=== PATIENT | female | born 1950 | race Hispanic/Latino ===

== ENCOUNTER → 2019-01-25 | Day surgery (SDC) | payer MEDICARE ==
[2019-01-19 10:10] LABS: BASOPHILS % 0.5 % (0.0-1.0); EOSINOPHILS # (AUTO) 0.3 (0.0-0.4); EOSINOPHILS % 2.9 % (0.0-6.0); LYMPHOCYTES # (AUTO) 2.3 (1.0-3.2); LYMPHOCYTES % 26.7 % (18.0-39.1); MEAN CORPUSCULAR HEMOGLOBIN 27.9 pg (28-32); MEAN CORPUSCULAR HGB CONC 34.3 g/dL (31-35); MEAN CORPUSCULAR VOLUME 81.4 fL (81-99); MONOCYTES # (AUTO) 0.7 (0.2-0.8); MONOCYTES % 8.4 % (4.4-11.3); NEUTROPHILS # (AUTO) 5.3 (2.1-6.9); PLATELET COUNT 286 x10e3/uL (140-360); RED CELL DISTRIBUTION WIDTH 13.4 % (11.7-14.4)
[2019-01-19 10:12] LABS: INR 0.88; PROTHROMBIN TIME 12.4 seconds (11.9-14.5)
[2019-01-19 10:13] LABS: PARTIAL THROMBOPLASTIN TIME 28.1 seconds (23.8-35.5)
[2019-01-19 10:21] LABS: ALANINE AMINOTRANSFERASE 18 IU/L (0-55); ALBUMIN 3.9 g/dL (3.5-5.0); ALBUMIN/GLOBULIN RATIO 1.1 (0.8-2.0); ALKALINE PHOSPHATASE 74 IU/L (40-150); ANION GAP 12.7 mmol/L (8-16); BLOOD UREA NITROGEN 11 mg/dL (7-26); BUN/CREATININE RATIO 14 (6-25); CALCIUM 9.6 mg/dL (8.4-10.2); CARBON DIOXIDE 26 mmol/L (22-29); CHLORIDE 101 mmol/L (98-107); CREATININE, SERUM 0.81 mg/dL (0.57-1.11); EST GLOMERULAR FILTRATION RATE > 60 ML/MIN (60-); GLUCOSE 116 mg/dL (74-118); POTASSIUM 3.7 mmol/L (3.5-5.1); SODIUM 136 mmol/L (136-145)
--- NOTE | 2019-01-19 10:23 | Diagnostic Imaging Report ---
EXAMINATION: PA and lateral views of the chest. COMPARISON: None CLINICAL HISTORY: Preoperative study for urological procedure DISCUSSION: The lungs are well-inflated and without focal airspace consolidation, pleural effusion, or pneumothorax. Postsurgical changes of the mediastinum with multiple intact sternotomy wires and mediastinal surgical clips. Normal heart size without overt pulmonary edema. No acute osseous abnormality. IMPRESSION: No acute cardiopulmonary abnormalities. Signed by: Dr. Chris Hooper M.D. on 01/19/2019 10:20 AM
[~2019-01-25] MED LIST: ASPIR 8181 MG PO; DEXAMETHASONE SOD PHOS INJ 4 MG/ML VIAL ONE; FENTANYL CITRATE/PF 100MCG/2 ML INJ ONE; IOPAMIDOL 610MG/1ML 300 MG/ML VIAL IV ONE; LEVOFLOXACIN 500MG/D5W 100ML 100 ML IV ONE; LIDOCAINE HCL 2% LOCAL INJ 5 ML SDV VIAL INJ ONE; METOPROLOL SUCC50 MG PO; MIDAZOLAM HCL 2 MG/2 ML VIAL ONE; ONDANSETRON HCL INJ 2MG/ML 2ML 2 MG/ML VIAL ONE; PROPOFOL IV EMULSION 10 MG/ML 20 ML VIAL ONE; SEVOFLURANE INHAL SOLN 250 ML PEN BTL ONE
--- OUTSIDE RECORDS SUMMARY | 2019-01-25 07:59 | XMS REPORT | Clinical Summary ---
Author Author [employer] Organization [facility] Address Unknown Phone Unavailable Care Team Providers Care Personal Service Representative Name Role Phone Harmeet Jarrell MD PCP Allergies No Known Allergies Medications End Date Status Medication Sig Dispensed Refills Start Date Active metoprolol tartrate ALEJANDRO BRIANNA 1 (LOPRESSOR) 50 mg tablet TABLETA 7 ORALMENTE CADA AIDA PARA RASHID PRESION Active aspirin (ECOTRIN) 81 MG Take 81 mg by 0 enteric coated tablet mouth daily. 11/03/2018 Discontinued sodium,potassium,mag Used As 2 Bottle 0 sulfates (SUPREP BOWEL directed 9 PREP KIT) 17.5-3.13-1.6 gram recon soln Active Problems Problem Noted Date Colon polyps 12/01/2018 Hx of hepatitis C 12/01/2018 Diverticulosis of large intestine without hemorrhage 12/01/2018 Hx of colonic polyps 10/26/2018 Overview: Added automatically from request for surgery Nuclear sclerotic cataract of left eye 05/23/2017 Encounters Care Team Description Date Type Specialty Mateo Angel MD Hx of colonic polyps (Primary Dx); Hx of hepatitis C 12/01/2018 Office Visit Gastroenterology Mateo Angel MD 12/01/2018 Orders Only Gastroenterology Herve Brooks MD Hematuria syndrome (Primary Dx); Adnexal tenderness, right 11/14/2018 Transcribe Access Orders Negro Orozco MD 11/04/2018 Anesthesia Gastroenterology Event Getachew Browne MD COLONOSCOPY 11/04/2018 Surgery Gastroenterology Getachew Browne MD 11/04/2018 Hospital Gastroenterology Encounter Harmeet Jarrell MD Screening for colon cancer (Primary Dx) 10/27/2018 Transcribe Orders Harmeet Jarrell MD 10/27/2018 Transcribe Orders Mateo Angel MD Hx of colonic polyps (Primary Dx); Chronic hepatitis C without hepatic coma (HCC); Left lower quadrant pain; Diverticulosis of large intestine without hemorrhage 10/26/2018 Office Visit Gastroenterology Iris Martinez MA PROCEDURE PREP INSTRUCTIONS 10/26/2018 Documentation Gastroenterology MartinezIris vasquez MA Hx of colonic polyps (Primary Dx) 10/26/2018 Prep for Gastroenterology Surgery Harmeet Jarrell MD Screening breast examination (Primary Dx) 05/24/2018 Transcribe Access Orders after 01/24/2018 Immunizations Name Dates Previously Given Next Due Tdap 05/01/2017 Family History Medical History Relation Name Comments No Known Problems Father No Known Problems Mother Relation Name Status Comments Father Mother Social History Date Tobacco Use Types Packs/Day Years Used Never Smoker Smokeless Tobacco: Never Used Alcohol Use Drinks/Week oz/Week Comments No Sex Assigned at Date Recorded Not on file Industry Job Start Date Occupation Not on file Not on file Not on file Travel End Travel History Travel Start No recent travel history available. Last Filed Vital Signs Time Taken Vital Sign Reading 12/01/2018 10:12 AM CDT Blood Pressure 151/78 12/01/2018 10:12 AM CDT Pulse 78 12/01/2018 10:12 AM CDT Temperature 36.8 C (98.2 F) 11/04/2018 11:13 AM CDT Respiratory Rate 10 11/04/2018 11:13 AM CDT Oxygen Saturation 100% - Inhaled Oxygen - Concentration 12/01/2018 10:12 AM CDT Weight 64.9 kg (143 lb) 12/01/2018 10:12 AM CDT Height 154.9 cm (5' 1") 12/01/2018 10:12 AM CDT Body Mass Index 27.02 Plan of Treatment Health Maintenance Due Date Last Done Comments COLONOSCOPY SCREENING 2001 SHINGLES VACCINES (#1) 2001 65+ PNEUMOCOCCAL VACCINE 2016 (1 of 2 - PCV13) INFLUENZA VACCINE 03/02/2019 BREAST CANCER SCREENING 07/12/2019 07/12/2017, 06/11/2016, 03/06/2011 Implants Device Identifier Shelf Expiration Date Model / Serial / Lot Implanted Type Area Manufactur er 08/14/2020 [id number] 25 5 / [id number] / [id number] Lens Iol Bicnvx 1pc Acryl +25.5d Intraocula Left: Eye ADVANCED 6x13mm Tecnis - [id number] - r Lens MEDICAL [id number] Implant [employer] Implanted: Qty: 1 on 05/27/2017 by dA Dejesus MD Procedures Comments Procedure Name Priority Date/Time Associated Diagnosis CBC WITH PLATELET AND Routine 12/01/[address] ABDOMEN PELVIS W Routine 11/25/2018 Hematuria syndrome CONTRAST 11:47 AM CDT Adnexal tenderness, right ESTIMATED GFR Routine 11/25/2018 11:13 AM CDT POC CREATININE Routine 11/25/2018 11:13 AM CDT COLONOSCOPY 11/04/2018 Hx of colonic polyps 10:15 AM CDT after 01/24/2018 Results * CBC with platelet and differential (12/01/2018) Specimen Blood Narrative Performed At * CT Abdomen Pelvis W Contrast (11/25/2018 11:47 AM CDT) Specimen Narrative Performed At EXAMINATION:CT ABDOMEN PELVIS W CONTRAST HM RADIANT CLINICAL HISTORY:R31.9 Hematuriaunspecified, R10.2 Pelvic and perineal pain, PELVIC PAIN HEMATURIA COMPARISON:11/26/2015. TECHNIQUE:CT of the abdomen and pelvis with intravenous contrast. CT imaging was performed with iterative reconstruction techniques and/or automated exposure control to reduce radiation dose. FINDINGS: LOWER THORAX:Unremarkable. HEPATOBILIARY:No focal hepatic lesions. No biliary ductal dilation. SPLEEN:No splenomegaly. PANCREAS:No focal masses or ductal dilation. ADRENALS:No adrenal nodules. KIDNEYS:No hydronephrosis, stones or solid masses. Ureters are unremarkable. GI TRACT:Moderate diverticulosis without diverticulitis. No bowel distention or wall thickening. Appendix is normal. PERITONEUM/RETROPERITONEUM:No free air or fluid. No lymphadenopathy. Aorta with moderate calcifications is nonaneurysmal. PELVIC ORGANS/BLADDER:Uterus is identified. Evidence of bilateral tubal ligation noted again. Stable 1.8 cm right ovarian cyst since 2016 CT exam, which was also identified on 10/07/2016 ultrasound exam. No left ovary is definitely identified. No adnexal mass. Urinary bladder is unremarkable. BONES AND SOFT TISSUES:Age-related changes are seen in the spine without focal abnormal osseous lesion. Partly seen median sternotomy. Small hyperdensities in the left inguinal region again noted. IMPRESSION: No acute abdominopelvic process is identified. I personally reviewed the images and the resident's findings and agree with the final report. [facility]-[id number] Procedure Note Interface, Radiology Results Incoming - 11/25/2018 12:51 PM CDT EXAMINATION: CT ABDOMEN PELVIS W CONTRAST CLINICAL HISTORY: R31.9 Hematuria unspecified, R10.2 Pelvic and perineal pain, PELVIC PAIN HEMATURIA COMPARISON: 11/26/2015. TECHNIQUE: CT of the abdomen and pelvis with intravenous contrast. CT imaging was performed with iterative reconstruction techniques and/or automated exposure control to reduce radiation dose. FINDINGS: LOWER THORAX: Unremarkable. HEPATOBILIARY: No focal hepatic lesions. No biliary ductal dilation. SPLEEN: No splenomegaly. PANCREAS: No focal masses or ductal dilation. ADRENALS: No adrenal nodules. KIDNEYS: No hydronephrosis, stones or solid masses. Ureters are unremarkable. GI TRACT: Moderate diverticulosis without diverticulitis. No bowel distention or wall thickening. Appendix is normal. PERITONEUM/RETROPERITONEUM: No free air or fluid. No lymphadenopathy. Aorta with moderate calcifications is nonaneurysmal. PELVIC ORGANS/BLADDER: Uterus is identified. Evidence of bilateral tubal ligation noted again. Stable 1.8 cm right ovarian cyst since 2016 CT exam, which was also identified on 10/07/2016 ultrasound exam. No left ovary is definitely identified. No adnexal mass. Urinary bladder is unremarkable. BONES AND SOFT TISSUES: Age-related changes are seen in the spine without focal abnormal osseous lesion. Partly seen median sternotomy. Small hyperdensities in the left inguinal region again noted. IMPRESSION: No acute abdominopelvic process is identified. I personally reviewed the images and the resident's findings and agree with the final report. [facility]-[id number] Performing Organization Address City/State/Zipcode Phone Number [facility] [address] [place] [address] * Estimated GFR (11/25/2018 11:13 AM CDT) Estimated GFR >=90 mL/min/1.73 m2 [place] Comment: BAPTISM GAVIRIA [facility] G1 >=90 Normal or high G2 60-89Mildly decreased T9d82-48 Mildly to moderately decreased P3o10-29 Moderately to severely decreased G4 15-29Severely decreased G5 <15Kidney failure The eGFR was calculated using the Chronic Kidney Disease Epidemiology Collaboration (CKD-EPI) equation. Interpretation is based on recommendations of the National Kidney Foundation-Kidney Disease Outcomes Quality Initiative (NKF-KDOQI) published in 2014. Specimen Blood Performing Organization Address City/State/Zipcode Phone Number [facility] DEPARTMENT OF [address] [phone] PATHOLOGY AND GENOMIC MEDICINE [facility] [address] * POC creatinine (11/25/2018 11:13 AM CDT) POC creatinine 0.6 0.5 - 0.9 mg/dl [place] Comment: LOTUS GAVIRIA Meter ID: [id number] [facility] Abstract Searcher: [facility] Specimen Blood Performing Organization Address City/[facility] Phone Number [facility] [address] [place] [address] PATHOLOGY AND GENOMIC MEDICINE [address] after 01/24/2018 Insurance Type Payer Benefit Subscriber ID Effective Phone Address Plan / Dates Group O [facility] MEDICARE AARP xxxxxxxxx [id number] MEDICARE resent COMPLETE [facility] Advance Directives Patient has advance care planning documents on file. For more information, ritu e contact: Chu Poe [address] [place] [address]
--- OUTSIDE RECORDS SUMMARY | 2019-01-25 07:59 | XMS REPORT ---
[facility] Address Unknown Phone Unavailable Care Team Providers Care Global Supply Chain Vice President Name Role Phone SAMCHAPISVeronica ZAPATA Unavailable Unavailable Problems This patient has no known problems. Allergies, Adverse Reactions, Alerts This patient has no known allergies or adverse reactions. Medications This patient has no known medications. Results Test Description Test Time Test Comments Text Results Atomic Results Result Comments CHEST 2 VIEWS 2019-01-19 10:18:00 [place] [address] Patient Name: LUCINA WILSON MR #: [id number] : 1950 Age/Sex: 68/F Req #: [id number] [facility] Physician: Ordered by: DENIS MCDANIELS MD Report #: [id number] Location: OR Room/Bed: Procedure: [id number] DX/CHEST 2 VIEWS Exam Date: 01/19/19 Exam Time: 1000 REPORT STATUS: Signed EXAMINATION: PA and lateral views of the chest. CO MPARISON: None CLINICAL HISTORY: Preoperative study for urological procedure DISCUSSION: The lungs are well-inflated and without focal airspace consolidation, pleural effusion, or pneumothorax. Postsurgical changes of the mediastinum with multiple intact sternotomy wires and mediastinal surgical clips. Normal heart size without overt pulmonary edema. No acute osseous abnormality. IMPRESSION: No acute cardiopulmonary abnormalities. Signed by: Dr. Emily Guthrie M.D. on 01/19/2019 10:20 AM Dictated By: EMILY GUTHRIE MD 1020 Transcribed By: NICCI on 01/19/19 1020 COPY TO: DENIS MCDANIELS MD
[2019-01-25 13:00] VITALS: BP 135/72
--- NOTE | 2019-01-26 11:28 | Operative Report ---
DATE OF PROCEDURE: 01/25/2019 SURGEON: Herve Brooks MD PREOPERATIVE DIAGNOSIS: Total gross painless hematuria. POSTOPERATIVE DIAGNOSES: 1. Total gross painless hematuria. 2. Severe chronic cystitis with chronic trigonitis. 3. 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 OPERATION: Cystourethroscopy and bilateral retrograde pyelogram. PRIMARY CARE PEDIATRICIAN: ASHLEY Cruz ANESTHETIC: General. DESCRIPTION OF PROCEDURE: Ms. Schaeffer is a 68-year-old female, who presented with a chief complaint of total gross painless hematuria. CT scan abdomen and pelvis was unremarkable. This patient was placed on the table in the lithotomy position and was prepped and draped in a sterile manner after satisfactory anesthesia. A #23-Wallisian cystoscope was used and cystourethroscopy was performed and it was noted that the urethra was normal. Cystoscopy was then performed using both right angle and Foroblique lens and the bladder mucosa showed chronic trigonitis with chronic cystitis. There was no evidence of gross tumor or any papillary lesions or stones. Both ureteral orifices were seen and were within normal position, configuration efflux. Right retrograde pyelogram was then performed using #8 bulb tip. Ureteral catheter inserted at the right ureteral orifice and 5 mL of contrast material was injected. The retrograde performed was normal. Left retrograde pyelogram was performed similarly and was normal. The bladder was drained. Cystoscope removed and patient taken to the recovery room in satisfactory condition. Plans for this lady is to be placed on Cipro 250 mg one twice a day for two weeks, then one every night for four weeks. She is to return to the office in one month. Also, Ultracet tablet one every 6 to 8 hours p.r.n. and was given 20. Herve Brooks MD MA/YANICK /[id number]
== END | disposition home or self-care (01) ==
LOC: OR 07:36
PROVIDERS: ATTEND Specialist
DX: N30.30 Trigonitis without hematuria (principal); Q64.8 Other specified congenital malformations of urinary system; R31.0 Gross hematuria; I25.810 Atherosclerosis of coronary artery bypass graft(s) without angina pectoris; I25.2 Old myocardial infarction; I10 Essential (primary) hypertension; K21.9 Gastro-esophageal reflux disease without esophagitis; K44.9 Diaphragmatic hernia without obstruction or gangrene; B19.20 Unspecified viral hepatitis C without hepatic coma; Z01.812 Encounter for preprocedural laboratory examination; Z01.818 Encounter for other preprocedural examination; Z79.82 Long term (current) use of aspirin; Z95.1 Presence of aortocoronary bypass graft
CPT/HCPCS: 36415; 52005; 71046; 74420; 80053; 85025; 85610; 85730; C1758; J1100; J1956; J2001; J2250; J2405; J2704; Q9967; J3010

== ENCOUNTER 2020-01-23 13:16 | Emergency (ER) | payer OTHER ==
[~2020-01-23] VITALS: Ht 154.9 cm; Wt 62.6 kg
[~2020-01-23 13:16] MED LIST changes: -DEXAMETHASONE SOD PHOS INJ 4 MG/ML VIAL ONE; -FENTANYL CITRATE/PF 100MCG/2 ML INJ ONE; -IOPAMIDOL 610MG/1ML 300 MG/ML VIAL IV ONE; -LEVOFLOXACIN 500MG/D5W 100ML 100 ML IV ONE; -LIDOCAINE HCL 2% LOCAL INJ 5 ML SDV VIAL INJ ONE; -MIDAZOLAM HCL 2 MG/2 ML VIAL ONE; -ONDANSETRON HCL INJ 2MG/ML 2ML 2 MG/ML VIAL ONE; -PROPOFOL IV EMULSION 10 MG/ML 20 ML VIAL ONE; -SEVOFLURANE INHAL SOLN 250 ML PEN BTL ONE
[2020-01-23 14:40] LABS: BILIRUBIN,URINE NEGATIVE (NEGATIVE); CLARITY,URINE SL CLOUDY (CLEAR); COLOR,URINE YELLOW (YELLOW); KETONES,URINE TRACE (NEGATIVE); LEUKOCYTE ESTERASE ,URINE NEGATIVE (NEGATIVE); NITRITE,URINE NEGATIVE (NEGATIVE); PROTEIN,URINE DIPSTICK 1+ (NEGATIVE); URINE UROBILINOGEN 0.2 mg/dL (0.2 - 1)
[2020-01-23 14:47] LABS: BACTERIA,URINE MODERATE /HPF; EPITHELIAL CELLS,URINE MODERATE /LPF; WBC,URINE (MAN) 0-5 /HPF (0-5)
--- NOTE | 2020-01-23 14:53 | Emergency Department Note ---
History of Present Illnes History of Present Illness Chief Complaint: COVID PUI History of Present Illness This is a 69 year old female SENT BY DR. GALLOWAY FOR COVID TESTING X 2 DAYS COUGHING CLEAR PHLEGM, DIZZINESS, THIS MORNING TEMP 102. DENIES ANY N/V OR SHORTNESS OF BREATH. Historian: Patient Arrival Mode: Car Additional Treatment FOREST RESOURCES PROFESSOR: NONE Opal Polisher Required: No Radiation: Reports non-radiation Severity: mild Onset quality: gradual Duration (how long): day(s) (2) Progression: waxing and waning Chronicity: new Context: Denies recent illness Relieving factors: none Exacerbating factors: none Associated symptoms: Reports cough, Reports fever/chills; Denies chest pain Treatments prior to arrival: none Past Medical/Family History Physician Review I have reviewed the patient's past medical and family history. Any updates have been documented here. Past Medical History Recent Fever: Yes (102@ OFFICE) Clinical Suspicion of Infectio: No New/Unexplained Change in Ment: No Past Medical History: Hypertension, CAD Other Medical History: HEPATITIS C- REMISSION TRIPLE BYPASS Other Surgery: LEFT KNEE Social History Smoking Cessation: Never Smoker Counseling Performed: No Alcohol Use: None Any Illegal Drug Use: No TB Exposure/Symptoms: No Physically hurt or threatened: No Other Last Tetanus: UTD Any Pre-Existing Lines (PICC,: No Is patient up to date on immun: Yes Last Flu: UTD Last Pneumovax: UTD Review of Systems Review of Systems Constitutional: Reports as per HPI, Reports fever EENTM: Reports no symptoms Cardiovascular: Reports no symptoms Respiratory: Reports as per HPI Gastrointestinal: Reports no symptoms Genitourinary: Reports no symptoms Musculoskeletal: Reports no symptoms Integumentary: Reports no symptoms Neurological: Reports no symptoms Psychological: Reports no symptoms Endocrine: Reports no symptoms Hematological/Lymphatic: Reports no symptoms Physical Exam Related Data Allergies: Coded Allergies: No Known Allergies (Unverified , 01/23/20) Triage Vital Signs Vital Signs Date Time Temp Pulse Resp B/P (MAP) Pulse Ox O2 Delivery O2 Flow Rate FiO2 01/23/20 13:22 99.8 88 18 136/69 97 Vital signs reviewed: Yes Physical Exam CONSTITUTIONAL Constitutional: Present well-developed, Present well-nourished HENT HENT: Present normocephalic, Present atraumatic, Present oropharynx clear/moist, Present nose normal HENT L/R: Present left ext ear normal, Present right ext ear normal EYES Eyes: Reports PERRL, Reports conjunctivae normal NECK Neck: Present ROM normal PULMONARY Pulmonary: Present effort normal, Present breath sounds normal CARDIOVASCULAR Cardiovascular: Present regular rhythm, Present heart sounds normal, Present capillary refill normal, Present normal rate GASTROINTESTINAL Abdominal: Present soft, Present nontender, Present bowel sounds normal GENITOURINARY Genitourinary: Present exam deferred SKIN Skin: Present warm, Present dry MUSCULOSKELETAL Musculoskeletal: Present ROM normal NEUROLOGICAL Neurological: Present alert, Present oriented x 3, Present no gross motor or sensory deficits PSYCHOLOGICAL Psychological: Present mood/affect normal, Present judgement normal Results Laboratory Laboratory Laboratory Tests Test 01/23/20 14:00 Urine Color Yellow (YELLOW) Urine Clarity Sl cloudy (CLEAR) Urine pH 7.5 (5 - 7) Urine Specific [place] 1.020 (1.010-1.025) Urine Protein 1+ (NEGATIVE) Urine Glucose (UA) Negative (NEGATIVE) Urine Ketones Trace (NEGATIVE) Urine Blood Moderate (NEGATIVE) Urine Nitrite Negative (NEGATIVE) Urine Bilirubin Negative (NEGATIVE) Urine Urobilinogen 0.2 mg/dL (0.2 - 1) Urine Leukocyte Esterase Negative (NEGATIVE) Lab results reviewed: Yes Imaging Imaging results reviewed: Yes Impressions EXAMINATION: CHEST SINGLE (PORTABLE) INDICATION: Cough COMPARISON: Chest radiograph 01/19/2019 FINDINGS: LINES/TUBES:None LUNGS:The lungs are well-inflated. No focal consolidation or pulmonary edema. PLEURA:No pleural effusion or pneumothorax. MEDIASTINUM:The cardiomediastinal silhouette appears normal in size and shape. Postoperative findings of prior CABG. BONES/SOFT TISSUES:No acute osseous injury. Sternotomy wires in place. ABDOMEN:No free air under the diaphragm. IMPRESSION: No focal pneumonia or pulmonary edema. Signed by: Dustin Degroot MD on 01/23/2020 4:08 PM Assessment & Plan Medical Decision Making MDM SENT BY PCP FOR COVID TEST - CHECK COVID SWAB AND CXR R/O PNEUMONIA Reassessment Reassessment CXR CLEAR, COVID STILL PENDING. O2 SAT REMAINS 98% ON RA EVEN WITH MARCHING IN PLACE FOR 1 MIN. DC WITH ZPACK AND PROE, SELF-QUARANTINE, PRONING Assessment & Plan Final Impression: (1) Bronchitis Depart Disposition: HOME, SELF-CARE Last Vital Signs Date Time Temp Pulse Resp B/P (MAP) Pulse Ox O2 Delivery O2 Flow Rate FiO2 01/23/20 14:11 99.2 68 16 147/68 98 Home Meds Reported Medications Metoprolol Succinate (METOPROLOL SUCCINATE) 50 Mg Tab.er.24h, 50 MG PO DAILY, MG 01/19/19 Aspirin (ASPIR 81) 81 Mg Tablet.dr, 81 MG PO DAILY 01/19/19 KENYA PATE MD Jan 23, 2020 14:53
--- NOTE | 2020-01-23 16:11 | Diagnostic Imaging Report ---
EXAMINATION: CHEST SINGLE (PORTABLE) INDICATION: Cough COMPARISON: Chest radiograph 01/19/2019 FINDINGS: LINES/TUBES:None LUNGS:The lungs are well-inflated. No focal consolidation or pulmonary edema. PLEURA:No pleural effusion or pneumothorax. MEDIASTINUM:The cardiomediastinal silhouette appears normal in size and shape. Postoperative findings of prior CABG. BONES/SOFT TISSUES:No acute osseous injury. Sternotomy wires in place. ABDOMEN:No free air under the diaphragm. IMPRESSION: No focal pneumonia or pulmonary edema. Signed by: Dustin Degroot MD on 01/23/2020 4:08 PM
== END 2020-01-23 20:30 | disposition home or self-care (01) ==
LOC: ER 13:16
DX: R50.9 Fever, unspecified (principal); R05 Cough; U07.1 COVID-19; J40 Bronchitis, not specified as acute or chronic; I10 Essential (primary) hypertension; I25.10 Atherosclerotic heart disease of native coronary artery without angina pectoris
CPT/HCPCS: 71045; 81001; 87086; 87635; 99283